=== PATIENT | female | born 1940 | race African-American/Black ===

== ENCOUNTER 2019-02-12 12:55 | Observation (INO) ==
[2019-02-12] MEDS ORDERED: CLINDAMYCIN INJ 600 MG in PREMIX 1 EACH IV STA (13:51)
[2019-02-12] MEDS ORDERED: CLINDAMYCIN INJ 50 ML IV ONE (14:14)
[2019-02-12 14:23] LABS: Basophils % 0.1 % (0.0-0.8); Eosinophils # 0.1 10*3/uL (0.0-0.87); Eosinophils % 0.6 % (0.00-10.9); Hematocrit 28.5 VOL% (35.7-47.0); Hemoglobin 8.5 GM/DL (12.0-16.0); Immature Granulocytes % 0.4 %; Immature Granulocytes Absolute 0.06 #; Lymphocytes # 1.2 10*3/uL (1.4-4.0); Lymphocytes % 8.3 % (21.3-54.2); Mean Corpuscular HGB Conc 29.8 GM/DL (32-36); Mean Corpuscular Volume 84.3 FL (87-102); Mean Platelet Volume 11.4 FL (9.6-12.0); Monocytes % 8.9 % (1.7-12.7); Neutrophils % 81.7 % (38.7-73.9); Platelet Count 171 T/CUMM (130-400); Red Blood Count 3.38 MC/CUMM (3.8-5.5); Red Cell Distribution Width 20.9 % (9.3-17.3)
[2019-02-12] MEDS ORDERED: SODIUM CHLORIDE 0.9% 500 ML IV STA (14:42)
[2019-02-12 14:46] LABS: Alanine Aminotransferase 18 U/L (13-56); Albumin 3.3 G/DL (3.4-5.0); Alkaline Phosphatase 92 U/L (45-117); Aspartate Amino Transferase 29 U/L (0-37); Blood Urea Nitrogen 35 MG/DL (7-18); Calcium 8.5 MG/DL (8.5-10.1); Estimated Glom Filtration Rate 42 ML/MIN; Osmolality,Calculated 283.4 MOS/KG (273-304)
[2019-02-12 14:48] LABS: Glucose 42 MG/DL (74-106)
[2019-02-12] MEDS ORDERED: DEXTROSE 50% 25 GM/50 ML VIAL IV ONE (14:58)
[2019-02-12] MEDS ORDERED: ONDANSETRON 4 MG/2 ML VIAL IV PRN (16:16)
[2019-02-12] MEDS ORDERED: DOCUSATE SODIUM 100 MG CAPSULE PO PRN (16:16)
[2019-02-12] MEDS ORDERED: SODIUM CHLORIDE 0.9% 1,000 ML IV SCH (16:30)
[2019-02-12] MEDS ORDERED: GLUCAGON 1 MG VIAL IM PRN (16:32)
[2019-02-12] MEDS ORDERED: DEXTROSE 50% 25 GM/50 ML VIAL IV PRN (16:32)
[2019-02-12 16:51] LABS: Risk Ratio 2.04; VLDL CHOLESTEROL 16.2 MG/DL
[2019-02-12] MEDS: ceFAZolin 1,000 MG in SYRINGE 1 EACH IV SCH (18:41)
[2019-02-12] MEDS ORDERED: ENOXAPARIN 40 MG/0.4 ML SYRINGE SUBCUT SCH (21:00)
[2019-02-12] MEDS: carvediloL 25 MG TABLET PO SCH (21:26)
[2019-02-12] MEDS: POTASSIUM CHLORIDE 20 MEQ TABLET PO SCH (21:26)
[2019-02-12] MEDS: INSULIN LISPRO 100 UNIT/ML SUBCUT SCH (21:27)
[2019-02-12] MEDS: FUROSEMIDE 40 MG TABLET PO SCH (22:23)
[2019-02-12] MEDS: DEXTROSE 5% NACL 0.9% 1,000 ML IV SCH (22:28)
[2019-02-12] MEDS: TIMOLOL 0.5% OPH SOLN 5 ML BOTTLE BOTH EYES SCH (22:28)
[2019-02-13] MEDS: ceFAZolin 1,000 MG in SYRINGE 1 EACH IV SCH ×3 (00:06→13:00)
[2019-02-13 05:13] LABS: Basophils % 0.2 % (0.0-0.8); Eosinophils # 0.1 10*3/uL (0.0-0.87); Eosinophils % 0.8 % (0.00-10.9); Hematocrit 26.2 VOL% (35.7-47.0); Hemoglobin 7.9 GM/DL (12.0-16.0); Immature Granulocytes % 0.6 %; Immature Granulocytes Absolute 0.06 #; Lymphocytes # 1.1 10*3/uL (1.4-4.0); Lymphocytes % 10.8 % (21.3-54.2); Mean Corpuscular HGB Conc 30.2 GM/DL (32-36); Mean Corpuscular Volume 82.4 FL (87-102); Mean Platelet Volume 11.4 FL (9.6-12.0); Monocytes % 9.3 % (1.7-12.7); Neutrophils % 78.3 % (38.7-73.9); Platelet Count 152 T/CUMM (130-400); Red Blood Count 3.18 MC/CUMM (3.8-5.5); Red Cell Distribution Width 20.6 % (9.3-17.3)
[2019-02-13 05:44] LABS: Calcium 8.6 MG/DL (8.5-10.1); Osmolality,Calculated 292.1 MOS/KG (273-304)
[2019-02-13] MEDS ORDERED: LEVOTHYROXINE 25 MCG TABLET PO SCH (06:30)
[2019-02-13] MEDS: INSULIN LISPRO 100 UNIT/ML SUBCUT SCH ×2 (07:26→13:00)
[2019-02-13] MEDS ORDERED: BRIMONIDINE/TIMOLOL OPH SOLN 5 ML BOTTLE BOTH EYES SCH (09:00)
[2019-02-13] MEDS ORDERED: PANTOPRAZOLE 40 MG TABLET PO SCH (09:00)
[2019-02-13] MEDS ORDERED: FLUTICASONE 50 MCG NASAL SPRAY 16 GM BOTTLE BOTH NARES SCH (09:00)
[2019-02-13] MEDS ORDERED: GABAPENTIN 400 MG CAPSULE PO SCH (09:00)
[2019-02-13] MEDS ORDERED: FERROUS SULFATE 325 MG TABLET PO SCH (09:00)
[2019-02-13] MEDS ORDERED: CHOLECALCIFEROL 1,000 UNIT TABLET PO SCH (09:00)
[2019-02-13] MEDS ORDERED: DULoxetine 30 MG CAPSULE PO SCH (09:00)
[2019-02-13] MEDS ORDERED: ASPIRIN EC 81 MG TABLET PO SCH (09:00)
[2019-02-13] MEDS ORDERED: TOPIRAMATE 25 MG TABLET PO SCH (09:00)
[2019-02-13] MEDS ORDERED: SIMVASTATIN 10 MG TABLET PO SCH (09:00)
[2019-02-13] MEDS: FUROSEMIDE 40 MG TABLET PO SCH (10:22)
[2019-02-13] MEDS: carvediloL 25 MG TABLET PO SCH (10:22)
[2019-02-13] MEDS: TIMOLOL 0.5% OPH SOLN 5 ML BOTTLE BOTH EYES SCH (10:22)
[2019-02-13] MEDS: POTASSIUM CHLORIDE 20 MEQ TABLET PO SCH (10:23)
[2019-02-13] MEDS: DEXTROSE 5% NACL 0.9% 1,000 ML IV SCH (11:08)
[2019-02-13 12:29] VITALS: BP 114/68
[2019-02-13] MEDS ORDERED: LATANOPROST 0.005% OPH SOLN 2.5 ML BOTTLE BOTH EYES SCH (21:00)
== END 2019-02-13 13:24 | disposition home or self-care (01) ==
LOC: N.ED 12:55 → N.EDINP 12:55 → N.2E 17:51
PROVIDERS: ADMIT Hospitalist; ATTEND Hospitalist

== ENCOUNTER 2019-03-22 15:12 | Inpatient (IN) ==
[2019-03-22] MEDS ORDERED: PIPERACILLIN/TAZOBACTAM 3,375 MG in SODIUM CHLORIDE 0.9% 100 ML IV STA (15:50)
[2019-03-22] MEDS ORDERED: VANCOMYCIN INJ 1,500 MG in SODIUM CHLORIDE 0.9% 250 ML IV STA (15:50)
[2019-03-22] MEDS ORDERED: SODIUM CHLORIDE 0.9% 1,000 ML IV STA (15:50)
[2019-03-22 16:11] LABS: Basophils % 0.2 % (0.0-0.8); Eosinophils # 0.2 10*3/uL (0.0-0.87); Hematocrit 35.4 VOL% (35.7-47.0); Hemoglobin 10.9 GM/DL (12.0-16.0); Immature Granulocytes % 0.5 %; Immature Granulocytes Absolute 0.08 #; Lymphocytes # 0.5 10*3/uL (1.4-4.0); Lymphocytes % 3.5 % (21.3-54.2); Mean Corpuscular HGB Conc 30.8 GM/DL (32-36); Mean Corpuscular Volume 84.1 FL (87-102); Mean Platelet Volume 10.1 FL (9.6-12.0); Monocytes % 3.1 % (1.7-12.7); Neutrophils % 91.7 % (38.7-73.9); Platelet Count 264 T/CUMM (130-400); Red Blood Count 4.21 MC/CUMM (3.8-5.5); Red Cell Distribution Width 21.5 % (9.3-17.3); White Blood Count 14.9 T/CUMM (4-12)
[2019-03-22 16:29] LABS: Albumin 3.9 G/DL (3.4-5.0); Bilirubin,Total 0.4 MG/DL (0.2-1.0); Calcium 9.5 MG/DL (8.5-10.1); Osmolality,Calculated 288.5 MOS/KG (273-304); Total Protein 9.6 G/DL (6.4-8.3)
[2019-03-22 16:48] LABS: Band Neutrophils 2 % (0-10); Eosinophils 1 % (0-10); Hypochromasia 1+; Lymphocytes 3 % (20-55); Microcytosis 2+; Polychromasia 1+; Segmented Neutrophils 93 % (50-85); Total Cells Counted 100
[2019-03-22 16:49] LABS: Platelet Estimate Normal
[2019-03-22] MEDS ORDERED: VANCOMYCIN 1,000 MG VIAL ONE (17:04)
[2019-03-22 17:06] LABS: Apearance,Urine Slightly Hazy (Clear); Bacteria,Urine Occasional /HPF (Few); Bilirubin,Urine Negative (Negative); Blood, Urine Negative (Negative); Glucose,Urine (UA) Negative (Negative); Ketones,Urine Negative (Negative); Mucus,Urine Occasional /LPF (Occasional); Nitrite,Urine Negative (Negative); Protein,Urine 30 MG/DL; RBC,Urine 2 /HPF (0-4); Squamous Epithelial Cell,Urine Occasional /HPF (0-10); Urine Color Yellow (Yellow); Urine Specific Gravity 1.016 (1.001-1.035); Urine Urobilinogen < 2.0 EU/DL (0.2-1.0); WBC,Urine 1 /HPF (0-6)
[2019-03-22] MEDS ORDERED: DOCUSATE SODIUM 100 MG CAPSULE PO PRN (18:14)
[2019-03-22] MEDS ORDERED: DEXTROSE 50% 25 GM/50 ML VIAL IV PRN (18:14)
[2019-03-22] MEDS ORDERED: ACETAMINOPHEN 325 MG TABLET PO PRN (18:14)
[2019-03-22] MEDS ORDERED: ONDANSETRON 4 MG/2 ML VIAL IV PRN (18:14)
[2019-03-22] MEDS ORDERED: GLUCAGON 1 MG VIAL IM PRN (18:14)
[2019-03-22 18:48] LABS: Sedimentation Rate-Westergren 44 MM/HR (0-30)
[2019-03-22] MEDS ORDERED: VANCOMYCIN INJ 1,000 MG in SODIUM CHLORIDE 0.9% 250 ML IV ONE (20:00)
[2019-03-22] MEDS ORDERED: BRIMONIDINE/TIMOLOL OPH SOLN 5 ML BOTTLE BOTH EYES SCH (21:00)
[2019-03-22] MEDS: carvediloL 25 MG TABLET PO SCH (22:37)
[2019-03-22] MEDS: TIMOLOL 0.5% OPH SOLN 5 ML BOTTLE BOTH EYES SCH (22:43)
[2019-03-22] MEDS: FERROUS SULFATE 325 MG TABLET PO SCH (22:43)
[2019-03-22] MEDS: ENOXAPARIN 40 MG/0.4 ML SYRINGE SUBCUT SCH (22:43)
[2019-03-22] MEDS: BRIMONIDINE 0.2% OPH SOLN 5 ML BOTTLE BOTH EYES SCH (22:43)
[2019-03-22] MEDS: GABAPENTIN 400 MG CAPSULE PO SCH (22:43)
[2019-03-22] MEDS: FUROSEMIDE 40 MG TABLET PO SCH (22:43)
[2019-03-22] MEDS: SODIUM CHLORIDE 0.9% 1,000 ML IV SCH (22:45)
[2019-03-22] MEDS: INSULIN LISPRO 100 UNIT/ML SUBCUT SCH (22:58)
[2019-03-23] MEDS: PIPERACILLIN/TAZOBACTAM 3,375 MG in SODIUM CHLORIDE 0.9% 100 ML IV SCH ×3 (01:05→17:40)
[2019-03-23 05:52] LABS: Basophils % 0.2 % (0.0-0.8); Hematocrit 28.4 VOL% (35.7-47.0); Hemoglobin 8.8 GM/DL (12.0-16.0); Immature Granulocytes % 0.6 %; Immature Granulocytes Absolute 0.14 #; Lymphocytes # 0.8 10*3/uL (1.4-4.0); Lymphocytes % 3.6 % (21.3-54.2); Mean Corpuscular Volume 82.3 FL (87-102); Mean Platelet Volume 11.2 FL (9.6-12.0); Monocytes % 5.1 % (1.7-12.7); Neutrophils % 90.5 % (38.7-73.9); Platelet Count 220 T/CUMM (130-400); Red Blood Count 3.45 MC/CUMM (3.8-5.5); Red Cell Distribution Width 21.2 % (9.3-17.3)
[2019-03-23 06:13] LABS: Hypochromasia 1+; Lymphocytes 4 % (20-55); Platelet Estimate Adequate; Segmented Neutrophils 93 % (50-85); Total Cells Counted 100
[2019-03-23 06:24] LABS: Albumin 2.9 G/DL (3.4-5.0); Bilirubin,Total 0.6 MG/DL (0.2-1.0); Calcium 8.5 MG/DL (8.5-10.1); Osmolality,Calculated 300.7 MOS/KG (273-304); Total Protein 7.3 G/DL (6.4-8.3)
[2019-03-23] MEDS: LEVOTHYROXINE 25 MCG TABLET PO SCH (07:05)
[2019-03-23] MEDS: DULoxetine 30 MG CAPSULE PO SCH (09:15)
[2019-03-23] MEDS: FUROSEMIDE 40 MG TABLET PO SCH ×2 (09:15→16:05)
[2019-03-23] MEDS: SIMVASTATIN 10 MG TABLET PO SCH (09:15)
[2019-03-23] MEDS: TOPIRAMATE 25 MG TABLET PO SCH (09:15)
[2019-03-23] MEDS: glipiZIDE 10 MG TABLET PO SCH (09:15)
[2019-03-23] MEDS: FERROUS SULFATE 325 MG TABLET PO SCH ×2 (09:16→20:46)
[2019-03-23] MEDS: carvediloL 25 MG TABLET PO SCH ×2 (09:16→17:40)
[2019-03-23] MEDS: GABAPENTIN 400 MG CAPSULE PO SCH ×3 (09:17→20:46)
[2019-03-23] MEDS: INSULIN LISPRO 100 UNIT/ML SUBCUT SCH ×4 (09:17→22:31)
[2019-03-23] MEDS: ASPIRIN EC 81 MG TABLET PO SCH (09:17)
[2019-03-23] MEDS: PANTOPRAZOLE 40 MG TABLET PO SCH (09:18)
[2019-03-23] MEDS: BRIMONIDINE 0.2% OPH SOLN 5 ML BOTTLE BOTH EYES SCH ×2 (09:18→20:45)
[2019-03-23] MEDS: FLUTICASONE 50 MCG NASAL SPRAY 16 GM BOTTLE BOTH NARES SCH (09:18)
[2019-03-23] MEDS: TIMOLOL 0.5% OPH SOLN 5 ML BOTTLE BOTH EYES SCH ×2 (09:18→20:45)
[2019-03-23] MEDS: ENOXAPARIN 40 MG/0.4 ML SYRINGE SUBCUT SCH (20:45)
[2019-03-23] MEDS: VANCOMYCIN INJ 2,250 MG in SODIUM CHLORIDE 0.9% 500 ML IV SCH (20:46)
[2019-03-24] MEDS: PIPERACILLIN/TAZOBACTAM 3,375 MG in SODIUM CHLORIDE 0.9% 100 ML IV SCH ×3 (01:18→16:42)
[2019-03-24 05:29] LABS: Calcium 8.5 MG/DL (8.5-10.1); Osmolality,Calculated 283.5 MOS/KG (273-304)
[2019-03-24] MEDS: LEVOTHYROXINE 25 MCG TABLET PO SCH (06:01)
[2019-03-24 06:17] LABS: Basophils % 0.2 % (0.0-0.8); Eosinophils # 0.2 10*3/uL (0.0-0.87); Eosinophils % 1.2 % (0.00-10.9); Hematocrit 28.9 VOL% (35.7-47.0); Hemoglobin 8.8 GM/DL (12.0-16.0); Immature Granulocytes % 0.5 %; Immature Granulocytes Absolute 0.08 #; Lymphocytes # 1.3 10*3/uL (1.4-4.0); Mean Corpuscular HGB Conc 30.4 GM/DL (32-36); Mean Platelet Volume 11.2 FL (9.6-12.0); Neutrophils % 83.1 % (38.7-73.9); Platelet Count 183 T/CUMM (130-400); Red Blood Count 3.44 MC/CUMM (3.8-5.5); Red Cell Distribution Width 21.4 % (9.3-17.3); White Blood Count 16.1 T/CUMM (4-12)
[2019-03-24] MEDS: INSULIN LISPRO 100 UNIT/ML SUBCUT SCH ×4 (08:50→20:49)
[2019-03-24] MEDS: FERROUS SULFATE 325 MG TABLET PO SCH ×2 (08:51→20:49)
[2019-03-24] MEDS: TOPIRAMATE 25 MG TABLET PO SCH (08:51)
[2019-03-24] MEDS: GABAPENTIN 400 MG CAPSULE PO SCH ×3 (08:51→21:37)
[2019-03-24] MEDS: SIMVASTATIN 10 MG TABLET PO SCH (08:51)
[2019-03-24] MEDS: glipiZIDE 10 MG TABLET PO SCH (08:51)
[2019-03-24] MEDS: FUROSEMIDE 40 MG TABLET PO SCH ×2 (08:52→16:42)
[2019-03-24] MEDS: ASPIRIN EC 81 MG TABLET PO SCH (08:52)
[2019-03-24] MEDS: PANTOPRAZOLE 40 MG TABLET PO SCH (08:52)
[2019-03-24] MEDS: TIMOLOL 0.5% OPH SOLN 5 ML BOTTLE BOTH EYES SCH ×2 (08:52→20:50)
[2019-03-24] MEDS: DULoxetine 30 MG CAPSULE PO SCH (08:52)
[2019-03-24] MEDS: carvediloL 25 MG TABLET PO SCH ×2 (08:52→16:42)
[2019-03-24] MEDS: BRIMONIDINE 0.2% OPH SOLN 5 ML BOTTLE BOTH EYES SCH ×2 (08:53→20:50)
[2019-03-24] MEDS: FLUTICASONE 50 MCG NASAL SPRAY 16 GM BOTTLE BOTH NARES SCH (08:53)
[2019-03-24] MEDS: SODIUM CHLORIDE 0.9% 1,000 ML IV SCH (12:32)
[2019-03-24] MEDS: VANCOMYCIN INJ 2,250 MG in SODIUM CHLORIDE 0.9% 500 ML IV SCH (20:32)
[2019-03-24] MEDS: ENOXAPARIN 40 MG/0.4 ML SYRINGE SUBCUT SCH (20:49)
[2019-03-25] MEDS: PIPERACILLIN/TAZOBACTAM 3,375 MG in SODIUM CHLORIDE 0.9% 100 ML IV SCH ×3 (00:06→17:13)
[2019-03-25 06:08] LABS: Basophils % 0.2 % (0.0-0.8); Eosinophils # 0.1 10*3/uL (0.0-0.87); Hemoglobin 8.7 GM/DL (12.0-16.0); Immature Granulocytes % 0.7 %; Immature Granulocytes Absolute 0.08 #; Lymphocytes # 1.1 10*3/uL (1.4-4.0); Lymphocytes % 9.3 % (21.3-54.2); Mean Platelet Volume 11.2 FL (9.6-12.0); Monocytes % 6.6 % (1.7-12.7); Neutrophils % 82.2 % (38.7-73.9); Platelet Count 168 T/CUMM (130-400); Red Blood Count 3.41 MC/CUMM (3.8-5.5); Red Cell Distribution Width 21.2 % (9.3-17.3); White Blood Count 12.1 T/CUMM (4-12)
[2019-03-25 06:32] LABS: Calcium 8.3 MG/DL (8.5-10.1); Osmolality,Calculated 281.7 MOS/KG (273-304)
[2019-03-25 06:34] LABS: Anisocytosis 1+; Hypochromasia 1+; Tear Drop Cells 1+
[2019-03-25 06:35] LABS: Ovalocytes Few; Platelet Estimate Normal
[2019-03-25] MEDS: LEVOTHYROXINE 25 MCG TABLET PO SCH (07:30)
[2019-03-25] MEDS: INSULIN LISPRO 100 UNIT/ML SUBCUT SCH ×4 (08:09→21:51)
[2019-03-25] MEDS: TIMOLOL 0.5% OPH SOLN 5 ML BOTTLE BOTH EYES SCH ×2 (09:31→21:52)
[2019-03-25] MEDS: BRIMONIDINE 0.2% OPH SOLN 5 ML BOTTLE BOTH EYES SCH ×2 (09:31→21:52)
[2019-03-25] MEDS: FLUTICASONE 50 MCG NASAL SPRAY 16 GM BOTTLE BOTH NARES SCH (09:31)
[2019-03-25] MEDS: GABAPENTIN 400 MG CAPSULE PO SCH ×3 (09:32→21:51)
[2019-03-25] MEDS: DULoxetine 30 MG CAPSULE PO SCH (09:32)
[2019-03-25] MEDS: FERROUS SULFATE 325 MG TABLET PO SCH ×2 (09:32→21:51)
[2019-03-25] MEDS: FUROSEMIDE 40 MG TABLET PO SCH ×2 (09:32→15:38)
[2019-03-25] MEDS: carvediloL 25 MG TABLET PO SCH ×2 (09:32→17:13)
[2019-03-25] MEDS: ASPIRIN EC 81 MG TABLET PO SCH (09:32)
[2019-03-25] MEDS: glipiZIDE 10 MG TABLET PO SCH (09:32)
[2019-03-25] MEDS: PANTOPRAZOLE 40 MG TABLET PO SCH (09:32)
[2019-03-25] MEDS: TOPIRAMATE 25 MG TABLET PO SCH (09:32)
[2019-03-25] MEDS ORDERED: SIMVASTATIN 10 MG TABLET PO SCH (21:00)
[2019-03-25] MEDS: ENOXAPARIN 40 MG/0.4 ML SYRINGE SUBCUT SCH (21:52)
[2019-03-25 23:51] LABS: Apearance,Urine Slightly Hazy (Clear); Bacteria,Urine Occasional /HPF (Few); Bilirubin,Urine Negative (Negative); Blood, Urine Negative (Negative); Glucose,Urine (UA) Negative (Negative); Ketones,Urine Negative (Negative); Mucus,Urine Occasional /LPF (Occasional); Nitrite,Urine Negative (Negative); Protein,Urine Negative; RBC,Urine 1 /HPF (0-4); Squamous Epithelial Cell,Urine Occasional /HPF (0-10); Urine Color Yellow (Yellow); Urine Specific Gravity 1.012 (1.001-1.035); Urine Urobilinogen < 2.0 EU/DL (0.2-1.0); WBC,Urine 1 /HPF (0-6)
[2019-03-26] MEDS: PIPERACILLIN/TAZOBACTAM 3,375 MG in SODIUM CHLORIDE 0.9% 100 ML IV SCH ×2 (00:34→11:12)
[2019-03-26] MEDS: LEVOTHYROXINE 25 MCG TABLET PO SCH (06:34)
[2019-03-26] MEDS: INSULIN LISPRO 100 UNIT/ML SUBCUT SCH ×2 (07:50→13:18)
[2019-03-26] MEDS ORDERED: LEVOFLOXACIN 500 MG TABLET PO ONE (09:58)
[2019-03-26] MEDS: carvediloL 25 MG TABLET PO SCH (11:08)
[2019-03-26] MEDS: TOPIRAMATE 25 MG TABLET PO SCH (11:08)
[2019-03-26] MEDS: FERROUS SULFATE 325 MG TABLET PO SCH (11:08)
[2019-03-26] MEDS: GABAPENTIN 400 MG CAPSULE PO SCH (11:08)
[2019-03-26] MEDS: ASPIRIN EC 81 MG TABLET PO SCH (11:09)
[2019-03-26] MEDS: DULoxetine 30 MG CAPSULE PO SCH (11:09)
[2019-03-26] MEDS: TIMOLOL 0.5% OPH SOLN 5 ML BOTTLE BOTH EYES SCH (11:09)
[2019-03-26] MEDS: PANTOPRAZOLE 40 MG TABLET PO SCH (11:09)
[2019-03-26] MEDS: glipiZIDE 10 MG TABLET PO SCH (11:09)
[2019-03-26] MEDS: FLUTICASONE 50 MCG NASAL SPRAY 16 GM BOTTLE BOTH NARES SCH (11:09)
[2019-03-26] MEDS: BRIMONIDINE 0.2% OPH SOLN 5 ML BOTTLE BOTH EYES SCH (11:10)
[2019-03-26] MEDS: FUROSEMIDE 40 MG TABLET PO SCH (11:10)
[2019-03-26 12:20] VITALS: BP 140/79
== END 2019-03-26 14:55 | disposition home health service (06) | DRG 872 ==
LOC: N.ED 15:12 → N.EDINP 18:14 → SUATTDRO 18:14 → N.2E 19:16 → N.5E 03-24 21:10
PROVIDERS: ADMIT Internal Medicine; ATTEND Internal Medicine

== ENCOUNTER 2019-05-13 00:09 | Inpatient (IN) ==
[2019-05-13 01:25] LABS: Basophils # 0.1 10*3/uL (0.0-0.2); Basophils % 0.2 % (0.0-0.8); Hematocrit 32.9 VOL% (35.7-47.0); Hemoglobin 10.1 GM/DL (12.0-16.0); Immature Granulocytes % 0.6 %; Immature Granulocytes Absolute 0.13 #; Lymphocytes # 0.8 10*3/uL (1.4-4.0); Lymphocytes % 3.6 % (21.3-54.2); Mean Corpuscular HGB Conc 30.7 GM/DL (32-36); Mean Corpuscular Volume 90.9 FL (87-102); Mean Platelet Volume 11.3 FL (9.6-12.0); Monocytes % 4.5 % (1.7-12.7); Neutrophils % 91.1 % (38.7-73.9); Platelet Count 183 T/CUMM (130-400); Red Blood Count 3.62 MC/CUMM (3.8-5.5); Red Cell Distribution Width 20.2 % (9.3-17.3); White Blood Count 21.2 T/CUMM (4-12)
[2019-05-13 01:46] LABS: Albumin 3.4 G/DL (3.4-5.0); Bilirubin,Total 0.8 MG/DL (0.2-1.0); Calcium 8.6 MG/DL (8.5-10.1); Osmolality,Calculated 280.7 MOS/KG (273-304); Total Protein 7.8 G/DL (6.4-8.3)
[2019-05-13 02:30] LABS: Apearance,Urine CLEAR (Clear); Bacteria,Urine Occasional /HPF (Few); Bilirubin,Urine Negative (Negative); Blood, Urine Small mg/dL (Negative); Glucose,Urine (UA) Negative (Negative); Hyaline Casts,Urine 3 /LPF (0-3); Ketones,Urine 5 mg/dL (Negative); Mucus,Urine Occasional /LPF (Occasional); Nitrite,Urine Negative (Negative); Protein,Urine 30 MG/DL; RBC,Urine 8 /HPF (0-4); Renal Epithelial Cells,Urine Occasional /HPF (<1); Squamous Epithelial Cell,Urine Occasional /HPF (0-10); Urine Color Yellow (Yellow); Urine Specific Gravity 1.021 (1.001-1.035); Urine Urobilinogen < 2.0 EU/DL (0.2-1.0); WBC,Urine 1 /HPF (0-6)
[2019-05-13] MEDS ORDERED: BICILLIN LA 1,200,000 UNIT/2 ML SYRINGE IM STA (03:09)
[2019-05-13 03:10] LABS: Hypochromasia 1+; Lymphocytes 3 % (20-55); Microcytosis 1+; Segmented Neutrophils 93 % (50-85); Total Cells Counted 100
[2019-05-13 03:11] LABS: Platelet Estimate Decreased
[2019-05-13] MEDS ORDERED: SODIUM CHLOR 0.9% KCL 20 MEQ 20 MEQ/1,000 ML BAG IV SCH (04:00)
[2019-05-13] MEDS ORDERED: ACETAMINOPHEN 500 MG TABLET PO STA (05:58)
[2019-05-13] MEDS ORDERED: GLUCAGON 1 MG VIAL IM PRN (06:36)
[2019-05-13] MEDS ORDERED: DOCUSATE SODIUM 100 MG CAPSULE PO PRN (06:36)
[2019-05-13] MEDS ORDERED: ONDANSETRON 4 MG/2 ML VIAL IV PRN (06:36)
[2019-05-13] MEDS ORDERED: DEXTROSE 10% 250 ML BAG IV PRN (06:36)
[2019-05-13] MEDS ORDERED: ACETAMINOPHEN 325 MG TABLET PO PRN (06:36)
[2019-05-13] MEDS ORDERED: SIMVASTATIN 10 MG TABLET PO SCH (09:00)
[2019-05-13] MEDS: FLUTICASONE 50 MCG NASAL SPRAY 16 GM BOTTLE BOTH NARES SCH (09:16)
[2019-05-13] MEDS: ENOXAPARIN 40 MG/0.4 ML SYRINGE SUBCUT SCH (09:16)
[2019-05-13] MEDS: BRIMONIDINE/TIMOLOL OPH SOLN 5 ML BOTTLE BOTH EYES SCH ×2 (09:17→21:51)
[2019-05-13] MEDS: TIMOLOL 0.5% OPH SOLN 5 ML BOTTLE BOTH EYES SCH ×2 (09:17→21:51)
[2019-05-13] MEDS: GABAPENTIN 400 MG CAPSULE PO SCH ×3 (09:18→21:51)
[2019-05-13] MEDS: FERROUS SULFATE 325 MG TABLET PO SCH ×2 (09:18→21:51)
[2019-05-13] MEDS: FUROSEMIDE 40 MG TABLET PO SCH ×2 (09:18→16:15)
[2019-05-13] MEDS: PANTOPRAZOLE 40 MG TABLET PO SCH (09:18)
[2019-05-13] MEDS: LEVOTHYROXINE 25 MCG TABLET PO SCH (09:18)
[2019-05-13] MEDS: carvediloL 25 MG TABLET PO SCH ×2 (09:19→21:51)
[2019-05-13] MEDS: ASPIRIN EC 81 MG TABLET PO SCH (09:19)
[2019-05-13] MEDS: glipiZIDE 10 MG TABLET PO SCH (09:19)
[2019-05-13] MEDS: TOPIRAMATE 25 MG TABLET PO SCH (09:19)
[2019-05-13] MEDS: DULoxetine 30 MG CAPSULE PO SCH (09:19)
[2019-05-13] MEDS: INSULIN LISPRO 100 UNIT/ML SUBCUT SCH ×4 (09:19→21:52)
[2019-05-13] MEDS: PIPERACILLIN/TAZOBACTAM 3,375 MG in SODIUM CHLORIDE 0.9% 100 ML IV SCH (16:15)
[2019-05-13] MEDS: SODIUM CHLORIDE 0.9% 1,000 ML IV SCH (21:54)
[2019-05-14] MEDS: LATANOPROST 0.005% OPH SOLN 2.5 ML BOTTLE BOTH EYES SCH ×2 (00:16→21:39)
[2019-05-14] MEDS: PIPERACILLIN/TAZOBACTAM 3,375 MG in SODIUM CHLORIDE 0.9% 100 ML IV SCH ×2 (00:17→09:21)
[2019-05-14 05:26] LABS: Basophils % 0.1 % (0.0-0.8); Eosinophils % 0.1 % (0.00-10.9); Hematocrit 28.7 VOL% (35.7-47.0); Hemoglobin 9.1 GM/DL (12.0-16.0); Immature Granulocytes % 0.5 %; Immature Granulocytes Absolute 0.07 #; Lymphocytes % 7.4 % (21.3-54.2); Mean Corpuscular HGB Conc 31.7 GM/DL (32-36); Mean Corpuscular Volume 88.9 FL (87-102); Mean Platelet Volume 11.1 FL (9.6-12.0); Monocytes % 5.7 % (1.7-12.7); Neutrophils % 86.2 % (38.7-73.9); Platelet Count 138 T/CUMM (130-400); Red Blood Count 3.23 MC/CUMM (3.8-5.5); Red Cell Distribution Width 19.6 % (9.3-17.3)
[2019-05-14 05:47] LABS: Calcium 8.1 MG/DL (8.5-10.1)
[2019-05-14] MEDS: LEVOTHYROXINE 25 MCG TABLET PO SCH (07:11)
[2019-05-14] MEDS: ENOXAPARIN 40 MG/0.4 ML SYRINGE SUBCUT SCH (07:11)
[2019-05-14] MEDS: SODIUM CHLORIDE 0.9% 1,000 ML IV SCH ×2 (08:01→09:23)
[2019-05-14] MEDS: glipiZIDE 10 MG TABLET PO SCH (09:20)
[2019-05-14] MEDS: ASPIRIN EC 81 MG TABLET PO SCH (09:21)
[2019-05-14] MEDS: INSULIN LISPRO 100 UNIT/ML SUBCUT SCH ×4 (09:21→21:40)
[2019-05-14] MEDS: FUROSEMIDE 40 MG TABLET PO SCH (09:21)
[2019-05-14] MEDS: BRIMONIDINE/TIMOLOL OPH SOLN 5 ML BOTTLE BOTH EYES SCH ×2 (09:21→21:39)
[2019-05-14] MEDS: GABAPENTIN 400 MG CAPSULE PO SCH ×3 (09:22→21:40)
[2019-05-14] MEDS: FERROUS SULFATE 325 MG TABLET PO SCH ×2 (09:22→21:40)
[2019-05-14] MEDS: TIMOLOL 0.5% OPH SOLN 5 ML BOTTLE BOTH EYES SCH ×2 (09:22→21:39)
[2019-05-14] MEDS: DULoxetine 30 MG CAPSULE PO SCH (09:22)
[2019-05-14] MEDS: PANTOPRAZOLE 40 MG TABLET PO SCH (09:22)
[2019-05-14] MEDS: FLUTICASONE 50 MCG NASAL SPRAY 16 GM BOTTLE BOTH NARES SCH (09:22)
[2019-05-14] MEDS: TOPIRAMATE 25 MG TABLET PO SCH (09:22)
[2019-05-14] MEDS: carvediloL 25 MG TABLET PO SCH (09:22)
[2019-05-14] MEDS: cefTRIAXone 2,000 MG in SYRINGE 1 EACH IV SCH (12:46)
[2019-05-14] MEDS: SIMVASTATIN 10 MG TABLET PO SCH (21:40)
[2019-05-14] MEDS: carvediloL 6.25 MG TABLET PO SCH (21:40)
[2019-05-15] MEDS: SODIUM CHLORIDE 0.9% 1,000 ML IV SCH (01:37)
[2019-05-15] MEDS: LEVOTHYROXINE 25 MCG TABLET PO SCH (06:07)
[2019-05-15] MEDS: ENOXAPARIN 40 MG/0.4 ML SYRINGE SUBCUT SCH (06:07)
[2019-05-15 06:45] LABS: Basophils % 0.2 % (0.0-0.8); Eosinophils # 0.1 10*3/uL (0.0-0.87); Eosinophils % 1.2 % (0.00-10.9); Hematocrit 27.8 VOL% (35.7-47.0); Hemoglobin 8.8 GM/DL (12.0-16.0); Immature Granulocytes % 0.6 %; Immature Granulocytes Absolute 0.06 #; Lymphocytes # 0.9 10*3/uL (1.4-4.0); Lymphocytes % 8.1 % (21.3-54.2); Mean Corpuscular HGB Conc 31.7 GM/DL (32-36); Mean Corpuscular Volume 89.1 FL (87-102); Mean Platelet Volume 11.6 FL (9.6-12.0); Monocytes % 6.4 % (1.7-12.7); Neutrophils % 83.5 % (38.7-73.9); Platelet Count 144 T/CUMM (130-400); Red Blood Count 3.12 MC/CUMM (3.8-5.5); Red Cell Distribution Width 19.4 % (9.3-17.3); White Blood Count 10.8 T/CUMM (4-12)
[2019-05-15] MEDS: INSULIN LISPRO 100 UNIT/ML SUBCUT SCH ×4 (09:26→21:20)
[2019-05-15] MEDS: DULoxetine 30 MG CAPSULE PO SCH (09:28)
[2019-05-15] MEDS: PANTOPRAZOLE 40 MG TABLET PO SCH (09:28)
[2019-05-15] MEDS: glipiZIDE 10 MG TABLET PO SCH (09:28)
[2019-05-15] MEDS: carvediloL 6.25 MG TABLET PO SCH ×2 (09:28→21:20)
[2019-05-15] MEDS: GABAPENTIN 400 MG CAPSULE PO SCH ×3 (09:28→21:19)
[2019-05-15] MEDS: FERROUS SULFATE 325 MG TABLET PO SCH ×2 (09:28→21:20)
[2019-05-15] MEDS: TOPIRAMATE 25 MG TABLET PO SCH (09:28)
[2019-05-15] MEDS: ASPIRIN EC 81 MG TABLET PO SCH (09:28)
[2019-05-15] MEDS: FLUTICASONE 50 MCG NASAL SPRAY 16 GM BOTTLE BOTH NARES SCH (09:29)
[2019-05-15] MEDS: BRIMONIDINE/TIMOLOL OPH SOLN 5 ML BOTTLE BOTH EYES SCH ×2 (09:30→21:20)
[2019-05-15] MEDS: TIMOLOL 0.5% OPH SOLN 5 ML BOTTLE BOTH EYES SCH ×2 (09:31→21:20)
[2019-05-15] MEDS: cefTRIAXone 2,000 MG in SYRINGE 1 EACH IV SCH (10:38)
[2019-05-15] MEDS ORDERED: TUBERCULIN SKIN TEST 0.1 ML SYRINGE INTRADERM ONE (11:58)
[2019-05-15] MEDS: SIMVASTATIN 10 MG TABLET PO SCH (21:19)
[2019-05-15] MEDS: LATANOPROST 0.005% OPH SOLN 2.5 ML BOTTLE BOTH EYES SCH (21:20)
[2019-05-16] MEDS: LEVOTHYROXINE 25 MCG TABLET PO SCH (06:05)
[2019-05-16 06:43] LABS: Basophils % 0.1 % (0.0-0.8); Eosinophils % 0.5 % (0.00-10.9); Hematocrit 28.8 VOL% (35.7-47.0); Hemoglobin 8.9 GM/DL (12.0-16.0); Immature Granulocytes % 0.8 %; Lymphocytes # 1.1 10*3/uL (1.4-4.0); Mean Corpuscular HGB Conc 30.9 GM/DL (32-36); Mean Platelet Volume 11.5 FL (9.6-12.0); Monocytes % 9.3 % (1.7-12.7); Neutrophils % 75.3 % (38.7-73.9); Platelet Count 167 T/CUMM (130-400)
[2019-05-16 06:44] LABS: Immature Granulocytes Absolute 0.06 #
[2019-05-16] MEDS: glipiZIDE 10 MG TABLET PO SCH (06:45)
[2019-05-16 06:48] LABS: Calcium 8.3 MG/DL (8.5-10.1); Osmolality,Calculated 283.4 MOS/KG (273-304)
[2019-05-16] MEDS: INSULIN LISPRO 100 UNIT/ML SUBCUT SCH ×4 (08:31→21:14)
[2019-05-16] MEDS: carvediloL 6.25 MG TABLET PO SCH ×2 (08:32→21:13)
[2019-05-16] MEDS: PANTOPRAZOLE 40 MG TABLET PO SCH (08:32)
[2019-05-16] MEDS: GABAPENTIN 400 MG CAPSULE PO SCH ×3 (08:32→21:13)
[2019-05-16] MEDS: DULoxetine 30 MG CAPSULE PO SCH (08:32)
[2019-05-16] MEDS: FERROUS SULFATE 325 MG TABLET PO SCH ×2 (08:32→21:13)
[2019-05-16] MEDS: TOPIRAMATE 25 MG TABLET PO SCH (08:32)
[2019-05-16] MEDS: FLUTICASONE 50 MCG NASAL SPRAY 16 GM BOTTLE BOTH NARES SCH (08:33)
[2019-05-16] MEDS: BRIMONIDINE/TIMOLOL OPH SOLN 5 ML BOTTLE BOTH EYES SCH ×2 (08:33→21:14)
[2019-05-16] MEDS: TIMOLOL 0.5% OPH SOLN 5 ML BOTTLE BOTH EYES SCH ×2 (08:33→21:14)
[2019-05-16] MEDS: SODIUM CHLORIDE 0.9% 1,000 ML IV SCH (08:42)
[2019-05-16] MEDS: POTASSIUM CHLORIDE 20 MEQ TABLET PO PRN ×3 (09:43→15:19)
[2019-05-16] MEDS: cefTRIAXone 2,000 MG in SYRINGE 1 EACH IV SCH (12:35)
[2019-05-16] MEDS: SIMVASTATIN 10 MG TABLET PO SCH (21:13)
[2019-05-16] MEDS: LATANOPROST 0.005% OPH SOLN 2.5 ML BOTTLE BOTH EYES SCH (21:13)
[2019-05-17 05:16] LABS: Basophils % 0.5 % (0.0-0.8); Eosinophils # 0.1 10*3/uL (0.0-0.87); Eosinophils % 0.6 % (0.00-10.9); Hematocrit 29.7 VOL% (35.7-47.0); Hemoglobin 9.2 GM/DL (12.0-16.0); Immature Granulocytes % 1.5 %; Immature Granulocytes Absolute 0.13 #; Lymphocytes # 1.1 10*3/uL (1.4-4.0); Lymphocytes % 13.5 % (21.3-54.2); Mean Platelet Volume 10.7 FL (9.6-12.0); Monocytes % 9.9 % (1.7-12.7); NRBC # 0.02 10*3/uL; Platelet Count 196 T/CUMM (130-400); Red Cell Distribution Width 18.9 % (9.3-17.3); White Blood Count 8.5 T/CUMM (4-12)
[2019-05-17 05:43] LABS: Calcium 8.5 MG/DL (8.5-10.1); Osmolality,Calculated 280.5 MOS/KG (273-304)
[2019-05-17] MEDS: glipiZIDE 10 MG TABLET PO SCH (06:34)
[2019-05-17] MEDS: LEVOTHYROXINE 25 MCG TABLET PO SCH (06:34)
[2019-05-17] MEDS: BRIMONIDINE/TIMOLOL OPH SOLN 5 ML BOTTLE BOTH EYES SCH ×2 (09:01→22:36)
[2019-05-17] MEDS: carvediloL 6.25 MG TABLET PO SCH ×2 (09:01→22:33)
[2019-05-17] MEDS: TOPIRAMATE 25 MG TABLET PO SCH (09:01)
[2019-05-17] MEDS: TIMOLOL 0.5% OPH SOLN 5 ML BOTTLE BOTH EYES SCH ×2 (09:01→22:36)
[2019-05-17] MEDS: FERROUS SULFATE 325 MG TABLET PO SCH ×2 (09:01→22:33)
[2019-05-17] MEDS: GABAPENTIN 400 MG CAPSULE PO SCH ×3 (09:01→22:32)
[2019-05-17] MEDS: DULoxetine 30 MG CAPSULE PO SCH (09:01)
[2019-05-17] MEDS: PANTOPRAZOLE 40 MG TABLET PO SCH (09:01)
[2019-05-17] MEDS: cefTRIAXone 1,000 MG in SYRINGE 1 EACH IV SCH (09:02)
[2019-05-17] MEDS: INSULIN LISPRO 100 UNIT/ML SUBCUT SCH ×4 (09:02→21:36)
[2019-05-17] MEDS: FLUTICASONE 50 MCG NASAL SPRAY 16 GM BOTTLE BOTH NARES SCH (09:02)
[2019-05-17] MEDS: LATANOPROST 0.005% OPH SOLN 2.5 ML BOTTLE BOTH EYES SCH (22:33)
[2019-05-17] MEDS: SIMVASTATIN 10 MG TABLET PO SCH (22:33)
[2019-05-18] MEDS: LEVOTHYROXINE 25 MCG TABLET PO SCH (06:01)
[2019-05-18] MEDS: INSULIN LISPRO 100 UNIT/ML SUBCUT SCH ×4 (08:19→21:59)
[2019-05-18] MEDS: DULoxetine 30 MG CAPSULE PO SCH (09:25)
[2019-05-18] MEDS: PANTOPRAZOLE 40 MG TABLET PO SCH (09:25)
[2019-05-18] MEDS: carvediloL 6.25 MG TABLET PO SCH ×2 (09:25→21:58)
[2019-05-18] MEDS: FERROUS SULFATE 325 MG TABLET PO SCH ×2 (09:25→21:58)
[2019-05-18] MEDS: glipiZIDE 10 MG TABLET PO SCH (09:25)
[2019-05-18] MEDS: GABAPENTIN 400 MG CAPSULE PO SCH ×3 (09:25→21:58)
[2019-05-18] MEDS: TOPIRAMATE 25 MG TABLET PO SCH (09:26)
[2019-05-18] MEDS: BRIMONIDINE/TIMOLOL OPH SOLN 5 ML BOTTLE BOTH EYES SCH ×2 (09:28→21:59)
[2019-05-18] MEDS: TIMOLOL 0.5% OPH SOLN 5 ML BOTTLE BOTH EYES SCH ×2 (09:28→21:59)
[2019-05-18] MEDS: FLUTICASONE 50 MCG NASAL SPRAY 16 GM BOTTLE BOTH NARES SCH (09:28)
[2019-05-18] MEDS: cefTRIAXone 1,000 MG in SYRINGE 1 EACH IV SCH (09:29)
[2019-05-18] MEDS: SIMVASTATIN 10 MG TABLET PO SCH (21:58)
[2019-05-18] MEDS: LATANOPROST 0.005% OPH SOLN 2.5 ML BOTTLE BOTH EYES SCH (21:58)
[2019-05-19] MEDS: LEVOTHYROXINE 25 MCG TABLET PO SCH (06:24)
[2019-05-19] MEDS: carvediloL 6.25 MG TABLET PO SCH (08:58)
[2019-05-19] MEDS: DULoxetine 30 MG CAPSULE PO SCH (08:58)
[2019-05-19] MEDS: PANTOPRAZOLE 40 MG TABLET PO SCH (08:58)
[2019-05-19] MEDS: glipiZIDE 10 MG TABLET PO SCH (08:58)
[2019-05-19] MEDS: BRIMONIDINE/TIMOLOL OPH SOLN 5 ML BOTTLE BOTH EYES SCH (09:00)
[2019-05-19] MEDS: cefTRIAXone 1,000 MG in SYRINGE 1 EACH IV SCH (09:00)
[2019-05-19] MEDS: FLUTICASONE 50 MCG NASAL SPRAY 16 GM BOTTLE BOTH NARES SCH (09:00)
[2019-05-19] MEDS: FERROUS SULFATE 325 MG TABLET PO SCH (09:00)
[2019-05-19] MEDS: GABAPENTIN 400 MG CAPSULE PO SCH (09:00)
[2019-05-19] MEDS: TIMOLOL 0.5% OPH SOLN 5 ML BOTTLE BOTH EYES SCH (09:00)
[2019-05-19] MEDS: TOPIRAMATE 25 MG TABLET PO SCH (09:04)
[2019-05-19] MEDS: INSULIN LISPRO 100 UNIT/ML SUBCUT SCH ×2 (09:05→11:51)
[2019-05-19 12:21] VITALS: BP 130/50
== END 2019-05-19 13:11 | DRG 872 ==
LOC: EDUNIT# → EDBD → N.ED 00:09 → N.EDINP 00:09 → N.2W 06:41 → N.5E 09:52 → N.2W 10:55 → N.5E 18:27 → SUATTDRO 05-14 09:56
PROVIDERS: ADMIT Internal Medicine; ATTEND Internal Medicine Geriatric Medicine

== ENCOUNTER 2019-09-27 23:17 | Inpatient (IN) ==
[2019-09-28] MEDS ORDERED: ACETAMINOPHEN 325 MG/10.15 ML UDCUP PO STA (00:06)
[2019-09-28] MEDS ORDERED: SODIUM CHLORIDE 0.9% 500 ML IV STA (00:17)
[2019-09-28] MEDS ORDERED: AZITHROMYCIN INJ 500 MG in SODIUM CHLORIDE 0.9% 250 ML IV STA (00:19)
[2019-09-28] MEDS ORDERED: PIPERACILLIN/TAZOBACTAM 3,375 MG in SODIUM CHLORIDE 0.9% 100 ML IV STA (00:19)
[2019-09-28] MEDS ORDERED: methylPREDNISolone SOD SUC 125 MG/2 ML VIAL IV STA (00:19)
[2019-09-28 01:37] LABS: Apearance,Urine CLEAR (Clear); Bacteria,Urine Occasional /HPF (Few); Bilirubin,Urine Negative (Negative); Blood, Urine Small mg/dL (Negative); Glucose,Urine (UA) Negative (Negative); Hyaline Casts,Urine 7 /LPF (0-3); Ketones,Urine Negative (Negative); Mucus,Urine Occasional /LPF (Occasional); Nitrite,Urine Negative (Negative); Protein,Urine Negative; RBC,Urine 1 /HPF (0-4); Squamous Epithelial Cell,Urine Occasional /HPF (0-10); Urine Color Yellow (Yellow); Urine Specific Gravity 1.012 (1.001-1.035); Urine Urobilinogen < 2.0 EU/DL (0.2-1.0); WBC,Urine 1 /HPF (0-6)
[2019-09-28 01:38] LABS: Barbiturates Screen,Urine Negative (Negative); Benzodiazepines Screen,Urine Negative (Negative); Cannabinoid Screen,Urine Negative (Negative); Opiate Screen,Urine Positive (Negative); Phencyclidine Screen,Urine Negative (Negative)
[2019-09-28 01:55] LABS: Basophils # 0.1 10*3/uL (0.0-0.2); Basophils % 0.2 % (0.0-0.8); Eosinophils # 0.9 10*3/uL (0.0-0.87); Eosinophils % 3.8 % (0.00-10.9); Hematocrit 31.9 VOL% (35.7-47.0); Hemoglobin 10.4 GM/DL (12.0-16.0); Immature Granulocytes % 1.3 %; Lymphocytes # 0.7 10*3/uL (1.4-4.0); Lymphocytes % 2.9 % (21.3-54.2); Mean Corpuscular HGB Conc 32.6 GM/DL (32-36); Mean Corpuscular Volume 85.1 FL (87-102); Monocytes % 3.4 % (1.7-12.7); Neutrophils % 88.4 % (38.7-73.9); Platelet Count 267 T/CUMM (130-400); Red Blood Count 3.75 MC/CUMM (3.8-5.5); White Blood Count 23.7 T/CUMM (4-12)
[2019-09-28 02:03] LABS: Alanine Aminotransferase 14 U/L (13-56); Albumin 3.1 G/DL (3.4-5.0); Alkaline Phosphatase 85 U/L (45-117); Aspartate Amino Transferase 26 U/L (0-37); Blood Urea Nitrogen 63 MG/DL (7-18); Calcium 8.3 MG/DL (8.5-10.1); Estimated Glom Filtration Rate 29 ML/MIN; Ferritin 95.1 ng/ml (8-252); Glucose 137 MG/DL (74-106); Osmolality,Calculated 285.4 MOS/KG (273-304); Total Protein 7.8 G/DL (6.4-8.3)
[2019-09-28 02:04] LABS: Troponin I 0.091 NG/ML (0.00-0.045)
[2019-09-28 02:10] LABS: INR 1.9; PT Patient Result 19.7 SECS (9.8-11.9)
[2019-09-28 02:57] LABS: Prolactin 7.7 NG/ML
[2019-09-28] MEDS ORDERED: ACETAMINOPHEN 325 MG TABLET PO PRN (03:18)
[2019-09-28] MEDS ORDERED: DEXTROSE 10% 250 ML BAG IV PRN (03:18)
[2019-09-28] MEDS ORDERED: DEXTROSE 50% 25 GM/50 ML VIAL IV PRN (03:18)
[2019-09-28] MEDS ORDERED: GLUCAGON 1 MG VIAL IM PRN (03:18)
[2019-09-28] MEDS ORDERED: ONDANSETRON 4 MG/2 ML VIAL IV PRN (03:18)
[2019-09-28] MEDS ORDERED: MAGNESIUM SULF RIDER 2 GM in PREMIX 1 EACH IV ONE (03:27)
[2019-09-28 03:28] LABS: Anisocytosis 1+; Band Neutrophils 5 % (0-10); Eosinophils 3 % (0-10); Hypochromasia 2+; Lymphocytes 4 % (20-55); Macrocytosis 1+; Ovalocytes Few; Platelet Estimate Normal; Segmented Neutrophils 86 % (50-85); Target Cells 1+; Total Cells Counted 100
[2019-09-28] MEDS: POTASSIUM CHLORIDE INJ 40 MEQ in SODIUM CHLORIDE 0.45% 1,000 ML IV SCH ×2 (05:36→21:00)
[2019-09-28] MEDS: cefTRIAXone 1,000 MG in SYRINGE 1 EACH IV SCH (06:09)
[2019-09-28] MEDS: ENOXAPARIN 30 MG/0.3 ML SYRINGE SUBCUT SCH (06:12)
[2019-09-28] MEDS ORDERED: LEVOFLOXACIN INJ 750 MG in PREMIX 1 EACH IV SCH (07:00)
[2019-09-28] MEDS: INSULIN REGULAR 100 UNIT/ML SUBCUT SCH ×4 (07:17→21:00)
[2019-09-28 08:35] LABS: ABG Base Excess 7.4 MMOL/L (-2.5-2.5); ABG HCO3 31.7 MMOL/L (20-26); ABG Oxygen Saturation 97.6 % (95-100); ABG PCO2 43.2 MM HG (35-48); ABG PH 7.483 (7.35-7.45); ABG PO2 100.2 MM HG (80-95)
[2019-09-28] MEDS: PANTOPRAZOLE 40 MG TABLET PO SCH (09:00)
[2019-09-28 10:10] LABS: Albumin 3.4 G/DL (3.4-5.0); Bilirubin,Total 0.5 MG/DL (0.2-1.0); Calcium 8.7 MG/DL (8.5-10.1); Osmolality,Calculated 287.7 MOS/KG (273-304); Total Protein 8.4 G/DL (6.4-8.3)
[2019-09-28 10:46] LABS: Basophils % 0.2 % (0.0-0.8); Eosinophils % 0.1 % (0.00-10.9); Hematocrit 36.1 VOL% (35.7-47.0); Hemoglobin 11.6 GM/DL (12.0-16.0); Immature Granulocytes % 0.8 %; Immature Granulocytes Absolute 0.22 #; Lymphocytes # 0.5 10*3/uL (1.4-4.0); Mean Corpuscular HGB Conc 32.1 GM/DL (32-36); Mean Platelet Volume 11.3 FL (9.6-12.0); Monocytes % 1.1 % (1.7-12.7); Neutrophils % 95.8 % (38.7-73.9); Platelet Count 252 T/CUMM (130-400); Red Blood Count 4.15 MC/CUMM (3.8-5.5); Red Cell Distribution Width 16.3 % (9.3-17.3); White Blood Count 26.6 T/CUMM (4-12)
[2019-09-28 11:44] LABS: Band Neutrophils 14 % (0-10); Lymphocytes 2 % (20-55); Platelet Estimate Normal; Segmented Neutrophils 83 % (50-85); Total Cells Counted 100
[2019-09-28 11:45] LABS: Anisocytosis Slight; Macrocytosis Slight
[2019-09-29] MEDS ORDERED: AZITHROMYCIN INJ 500 MG in SODIUM CHLORIDE 0.9% 250 ML IV SCH (01:00)
[2019-09-29] MEDS: cefTRIAXone 1,000 MG in SYRINGE 1 EACH IV SCH (05:41)
[2019-09-29] MEDS: ENOXAPARIN 30 MG/0.3 ML SYRINGE SUBCUT SCH (05:41)
[2019-09-29] MEDS: INSULIN REGULAR 100 UNIT/ML SUBCUT SCH ×4 (09:40→20:32)
[2019-09-29] MEDS ORDERED: TIMOLOL 0.5% OPH SOLN 5 ML BOTTLE BOTH EYES SCH (10:00)
[2019-09-29 10:18] LABS: Basophils % 0.1 % (0.0-0.8); Eosinophils % 0.1 % (0.00-10.9); Hematocrit 31.6 VOL% (35.7-47.0); Immature Granulocytes % 0.7 %; Immature Granulocytes Absolute 0.15 #; Lymphocytes % 4.6 % (21.3-54.2); Mean Corpuscular HGB Conc 31.6 GM/DL (32-36); Mean Corpuscular Volume 86.1 FL (87-102); Mean Platelet Volume 11.3 FL (9.6-12.0); Neutrophils % 90.5 % (38.7-73.9); Platelet Count 244 T/CUMM (130-400); Red Blood Count 3.67 MC/CUMM (3.8-5.5); Red Cell Distribution Width 16.2 % (9.3-17.3); White Blood Count 21.5 T/CUMM (4-12)
[2019-09-29 10:35] LABS: Hypochromasia 1+; Lymphocytes 3 % (20-55); Ovalocytes Slight; Platelet Estimate Adequate; Segmented Neutrophils 95 % (50-85); Total Cells Counted 100
[2019-09-29 10:50] LABS: Calcium 9.4 MG/DL (8.5-10.1); Osmolality,Calculated 287.2 MOS/KG (273-304)
[2019-09-29] MEDS: POTASSIUM CHLORIDE INJ 40 MEQ in SODIUM CHLORIDE 0.45% 1,000 ML IV SCH ×2 (10:56→23:25)
[2019-09-29] MEDS: MULTIVITAMIN (BEROCCA) TABLET PO SCH (11:00)
[2019-09-29] MEDS: BRIMONIDINE/TIMOLOL OPH SOLN 5 ML BOTTLE BOTH EYES SCH ×2 (11:00→20:32)
[2019-09-29] MEDS: SIMVASTATIN 10 MG TABLET PO SCH (11:00)
[2019-09-29] MEDS: CYANOCOBALAMIN 500 MCG TABLET PO SCH (11:00)
[2019-09-29] MEDS: ASPIRIN EC 81 MG TABLET PO SCH (11:00)
[2019-09-29] MEDS: carvediloL 25 MG TABLET PO SCH ×2 (11:00→20:45)
[2019-09-29] MEDS: TOPIRAMATE 25 MG TABLET PO SCH (11:00)
[2019-09-29] MEDS: PANTOPRAZOLE 40 MG TABLET PO SCH (11:00)
[2019-09-29] MEDS: DULoxetine 30 MG CAPSULE PO SCH (11:00)
[2019-09-29] MEDS: FLUTICASONE 50 MCG NASAL SPRAY 16 GM BOTTLE BOTH NARES SCH (11:00)
[2019-09-29] MEDS: FERROUS SULFATE 325 MG TABLET PO SCH (17:12)
[2019-09-29] MEDS ORDERED: LATANOPROST 0.005% OPH SOLN 2.5 ML BOTTLE BOTH EYES SCH (21:00)
[2019-09-30] MEDS: ENOXAPARIN 30 MG/0.3 ML SYRINGE SUBCUT SCH (06:15)
[2019-09-30 06:35] LABS: Basophils % 0.2 % (0.0-0.8); Eosinophils # 0.1 10*3/uL (0.0-0.87); Eosinophils % 0.9 % (0.00-10.9); Hematocrit 29.9 VOL% (35.7-47.0); Hemoglobin 9.7 GM/DL (12.0-16.0); Immature Granulocytes % 0.5 %; Immature Granulocytes Absolute 0.06 #; Lymphocytes # 1.3 10*3/uL (1.4-4.0); Lymphocytes % 9.9 % (21.3-54.2); Mean Corpuscular HGB Conc 32.4 GM/DL (32-36); Mean Corpuscular Volume 84.9 FL (87-102); Mean Platelet Volume 11.2 FL (9.6-12.0); Monocytes % 4.6 % (1.7-12.7); Neutrophils % 83.9 % (38.7-73.9); Platelet Count 231 T/CUMM (130-400); Red Blood Count 3.52 MC/CUMM (3.8-5.5); Red Cell Distribution Width 16.5 % (9.3-17.3); White Blood Count 12.8 T/CUMM (4-12)
[2019-09-30] MEDS: cefTRIAXone 1,000 MG in SYRINGE 1 EACH IV SCH (06:35)
[2019-09-30 07:00] LABS: Calcium 9.2 MG/DL (8.5-10.1)
[2019-09-30] MEDS: INSULIN REGULAR 100 UNIT/ML SUBCUT SCH ×2 (08:31→11:15)
[2019-09-30] MEDS: carvediloL 25 MG TABLET PO SCH (08:32)
[2019-09-30] MEDS: FERROUS SULFATE 325 MG TABLET PO SCH (08:32)
[2019-09-30] MEDS: CYANOCOBALAMIN 500 MCG TABLET PO SCH (08:32)
[2019-09-30] MEDS: TOPIRAMATE 25 MG TABLET PO SCH (08:33)
[2019-09-30] MEDS: POTASSIUM CHLORIDE 20 MEQ TABLET PO PRN ×2 (08:33→11:06)
[2019-09-30] MEDS: PANTOPRAZOLE 40 MG TABLET PO SCH (08:33)
[2019-09-30] MEDS: SIMVASTATIN 10 MG TABLET PO SCH (08:33)
[2019-09-30] MEDS: ASPIRIN EC 81 MG TABLET PO SCH (08:34)
[2019-09-30] MEDS: BRIMONIDINE/TIMOLOL OPH SOLN 5 ML BOTTLE BOTH EYES SCH (08:34)
[2019-09-30] MEDS: FLUTICASONE 50 MCG NASAL SPRAY 16 GM BOTTLE BOTH NARES SCH (08:34)
[2019-09-30] MEDS: MULTIVITAMIN (BEROCCA) TABLET PO SCH (08:34)
[2019-09-30] MEDS: DULoxetine 30 MG CAPSULE PO SCH (08:34)
[2019-09-30] MEDS ORDERED: AZITHROMYCIN 250 MG TABLET PO SCH (09:00)
[2019-09-30] MEDS ORDERED: LEVOTHYROXINE 25 MCG TABLET PO SCH (09:00)
[2019-09-30] MEDS: POTASSIUM CHLORIDE INJ 40 MEQ in SODIUM CHLORIDE 0.45% 1,000 ML IV SCH (11:05)
[2019-09-30 12:17] VITALS: BP 132/62
== END 2019-09-30 16:57 | disposition home health service (06) | DRG 193 ==
LOC: EDBD → EDUNIT# → N.ED 23:17 → N.EDINP 09-28 03:18 → N.2E 09-28 13:40
PROVIDERS: ADMIT Family Medicine; ATTEND Family Medicine